=== PATIENT | male | born 1945 | race Caucasian/White ===

== ENCOUNTER 2024-03-19 20:20 | Inpatient (IN) | payer OTHER ==
[~2024-03-19] VITALS: Ht 160 cm; Wt 71.3 kg
[2024-03-19] MEDS ORDERED: AZITHROMYCIN 500MG/250ML 250 ML IV ONE (21:00)
[2024-03-19] MEDS ORDERED: CEFTRIAXONE 1GM/50ML 50 ML IV ONE (21:00)
[2024-03-19] MEDS: SODIUM CHLORIDE 0.9% 1000ML BAG (SEPSIS BOLUS) IV ONE (21:32)
[2024-03-19 21:56] LABS: LACTIC ACID 3.5 mmol/L (0.4-2.0)
[2024-03-20] LABS: HEMATOCRIT. 34.8 % (42.0-52.0); HEMOGLOBIN. 11.3 g/dL (14.0-18.0); MEAN CORPUSCULAR HEMOGLOBIN 28.4 pg (28.0-32.0); MEAN CORPUSCULAR HGB CONC 32.5 g/dL (31.0-37.0); MEAN CORPUSCULAR VOLUME 87.3 fL (80.0-94.0); MEAN PLATELET VOLUME 8.9 fl (7.4-10.4); PLATELET 162 x1000/uL (130-400); RED BLOOD CELL COUNT 3.99 mill/uL (4.7-6.1); RED CELL DISTRIBUTION WIDTH 13.8 % (11.6-14.6); WHITE BLOOD COUNT 9.7 x1000/uL (4.5-11.0)
[2024-03-20 00:03] LABS: DIFFERENTIAL COMMENT 1
[2024-03-20 00:06] LABS: CHLORIDE 103 mEq/L (98-107); POTASSIUM 3.5 mEq/L (3.5-5.1); SODIUM 137 mEq/L (136-145)
[2024-03-20 00:07] LABS: CALCIUM 7.9 mg/dL (8.7-10.4); CARBON DIOXIDE 21 mEq/L (21-32)
[2024-03-20 00:12] LABS: CREATININE 2.5 mg/dL (0.6-1.3); GLUCOSE 112 mg/dL (70-105); UREA NITROGEN BLOOD 36 mg/dL (9-23)
[2024-03-20 00:13] LABS: LACTATE DEHYDROGENASE 353 IU/L (120-246)
[2024-03-20 00:14] LABS: ALANINE AMINOTRANSFERASE 59 IU/L (10-49); ALBUMIN 3.4 g/dL (3.2-4.8); ASPARTATE AMINOTRANSFERASE 117 IU/L (<34); BILIRUBIN DIRECT 0.2 mg/dL (<=3.0); BILIRUBIN TOTAL 0.4 mg/dL (0.1-1.0); PROTEIN TOTAL 6.2 g/dL (6.0-8.3)
[2024-03-20 01:04] LABS: CREATINE KINASE 1390 IU/L (46-171)
[2024-03-20 01:06] LABS: TROPONIN I HIGH SENSITIVITY 213 ng/L (3.0-53)
[2024-03-20 01:10] LABS: D-DIMER 1.59 mg/L FEU (<0.50); INR 1.4; PARTIAL THROMBOPLASTIN TIME 30.8 sec (23.4-31.0); PROTHROMBIN TIME 15.7 sec (9.6-11.0)
[2024-03-20] MEDS: GUAIFENESIN 200MG/10ML SUGAR FREE UDC PO ONE (01:18)
[2024-03-20] MEDS: CEFTRIAXONE 1GM/50ML 50 ML IV NR (01:20)
[2024-03-20] MEDS: AZITHROMYCIN 500MG/250ML 250 ML IV NR (02:16)
[2024-03-20] MEDS: ACETAMINOPHEN 1000MG/100ML 100 ML IV ONE (03:57)
[2024-03-20] MEDS: ENOXAPARIN 80MG/0.8ML SYR SUBCUT NR (04:06)
[2024-03-20] MEDS ORDERED: IOHEXOL-350 100 ML BOTTLE ONE (04:07)
[2024-03-20 08:40] LABS: PLATELET ESTIMATE NORMAL
[2024-03-20 13:30] VITALS: BP 158/94; PULSE 130; RESP 30; TEMP 99
[2024-03-20 14:00] VITALS: BP 163/106; PULSE 136; RESP 35
[2024-03-20 16:00] VITALS: BP 129/75; PULSE 140; RESP 58; TEMP 102.5
[2024-03-20] MEDS ORDERED: ONDANSETRON HCL 4MG/2ML INJ IV PRN (16:30)
[2024-03-20] MEDS ORDERED: IPRATROPIUM/ALBUTEROL 0.5-3(2.5)MG/3ML NEB NEB PRN (16:30)
[2024-03-20] MEDS ORDERED: ACETAMINOPHEN 325MG TABLET PO PRN (16:30)
[2024-03-20] MEDS: ACETAMINOPHEN 325MG TABLET PO PRN (16:44)
[2024-03-20] MEDS: SODIUM CHLORIDE 0.9% 1,000 ML IV SCH (16:45)
[2024-03-20] MEDS: CEFTRIAXONE 1GM/50ML 50 ML IV SCH (17:19)
[2024-03-20] MEDS: ENOXAPARIN 30MG/0.3ML SYR SUBCUT SCH (17:20)
[2024-03-20] MEDS: PANTOPRAZOLE SODIUM 40 MG/VIAL IV SCH (17:40)
[2024-03-20 18:00] VITALS: BP 119/78; PULSE 124; RESP 36
[2024-03-20 20:00] VITALS: BP 110/74; PULSE 119; RESP 39; TEMP 97.3
[2024-03-20] MEDS: LACTOBACILLUS GG CAPSULE PO SCH (21:42)
[2024-03-20] MEDS: ENOXAPARIN 30MG/0.3ML SYR SUBCUT NR (21:42)
[2024-03-20 22:00] VITALS: BP 126/85; PULSE 120; RESP 34
[2024-03-20 23:09] LABS: CLARITY URINE CLOUDY (CLEAR); COLOR URINE YELLOW (YELLOW); GLUCOSE URINE NEGATIVE (NEGATIVE); KETONES URINE NEGATIVE (NEGATIVE); LEUKOCYTE ESTERASE URINE NEGATIVE (NEGATIVE); NITRITE URINE NEGATIVE (NEGATIVE); OCCULT BLOOD URINE 3+ (NEGATIVE); PH URINE 5.5 (4.5-8.0); PROTEIN URINE 2+ (NEGATIVE); SPECIFIC GRAVITY URINE 1.023 (1.005-1.030); UROBILINOGEN URINE 0.2 E.U./dL (0.2-1.0)
[2024-03-20 23:21] LABS: BACTERIA URINE 3+; RBC URINE TNTC /hpf (0-2); SQUAMOUS EPITHELIAL CELL URINE FEW /lpf (RARE/1+); WBC URINE 0-2 /hpf (0-2)
[2024-03-20 23:27] LABS: *AMPHETAMINES SCREEN URINE NEGATIVE (NEGATIVE); *BARBITURATES SCREEN URINE NEGATIVE (NEGATIVE); *COCAINE SCREEN URINE NEGATIVE (NEGATIVE); ECSTASY MDMA SCREEN URINE NEGATIVE (NEGATIVE); METHADONE URINE SCREEN NEGATIVE (NEGATIVE); OPIATES URINE SCREEN NEGATIVE (NEGATIVE); PHENCYCLIDINE URINE SCREEN NEGATIVE (NEGATIVE)
[2024-03-21] VITALS (20 sets, daily range): BP systolic 105–156; BP diastolic 70–108; PULSE 108–135; RESP 23–44; TEMP 98.4–100.3
[2024-03-21 00:37] LABS: CREATINE KINASE MB FRACTION 6.8 ng/mL (0.5-3.6)
[2024-03-21 01:08] LABS: BG BASE EXCESS -6.3 mmol/L (-2.0-2.0); BG CARBOXYHEMOGLOBIN 0.3 % (0.5-1.5); BG DEOXYHEMOGLOBIN 11.8 % (0.0-5.0); BG FRACTION INSPIRED OXYGEN 40; BG HCO3 ACT 16.3 mmol/L (22.0-26.0); BG METHEMOGLOBIN 0.3 % (0.0-1.5); BG OXYGEN SATURATION 88.1 % (92.0-98.5); BG OXYHEMOGLOBIN 87.6 % (94.0-97.0); BG PCO2 25.3 mmHg (35.0-45.0); BG PH 7.428 (7.350-7.450); BG PO2 54.3 mmHg (75.0-100.0); BG TOTAL HEMOGLOBIN 13.1 g/dL (12.0-18.0); BG VENT MODE NASAL CANNULA
[2024-03-21] MEDS: METHYLPREDNISOLONE SOD SUCC 40MG/ML (ACT-O-VIAL) IV SCH (02:39)
[2024-03-21 05:09] LABS: CREATINE KINASE MB FRACTION 4.8 ng/mL (0.5-3.6)
[2024-03-21 05:12] LABS: TRIGLYCERIDE 138 mg/dL (0-150)
[2024-03-21 05:13] LABS: LDL CHOLESTEROL 21 mg/dL (5-100)
[2024-03-21 05:14] LABS: CHOLESTEROL 80 mg/dL (<200); HDL CHOLESTEROL < 20 mg/dL (>55)
[2024-03-21 05:22] LABS: CREATINE KINASE 1300 IU/L (46-171)
[2024-03-21 06:31] LABS: TROPONIN I HIGH SENSITIVITY 454 ng/L (3.0-53)
[2024-03-21] MEDS: AZITHROMYCIN 250 MG TABLET PO SCH (08:19)
[2024-03-21] MEDS: FAMOTIDINE 20MG/2ML VIAL IV SCH (08:19)
[2024-03-21] MEDS: IPRATROPIUM/ALBUTEROL 0.5-3(2.5)MG/3ML NEB HHN SCH (08:45)
[2024-03-21 09:55] LABS: HEMATOCRIT. 35.9 % (42.0-52.0); HEMOGLOBIN. 11.6 g/dL (14.0-18.0); MEAN CORPUSCULAR HEMOGLOBIN 27.6 pg (28.0-32.0); MEAN CORPUSCULAR HGB CONC 32.4 g/dL (31.0-37.0); MEAN CORPUSCULAR VOLUME 85.1 fL (80.0-94.0); MEAN PLATELET VOLUME 9.3 fl (7.4-10.4); PLATELET 144 x1000/uL (130-400); RED BLOOD CELL COUNT 4.22 mill/uL (4.7-6.1); RED CELL DISTRIBUTION WIDTH 14.2 % (11.6-14.6); WHITE BLOOD COUNT 9.9 x1000/uL (4.5-11.0)
[2024-03-21] MEDS: ASPIRIN 81MG TABLET PO SCH (09:58)
[2024-03-21 10:14] LABS: DIFFERENTIAL COMMENT 1
[2024-03-21 10:15] LABS: POTASSIUM 3.7 mEq/L (3.5-5.1)
[2024-03-21 10:16] LABS: CALCIUM 7.9 mg/dL (8.7-10.4)
[2024-03-21 10:20] LABS: CREATINE KINASE MB FRACTION 3.1 ng/mL (0.5-3.6)
[2024-03-21] MEDS: METRONIDAZOLE 500MG TABLET PO SCH (17:11)
[2024-03-21 17:12] LABS: PLATELET ESTIMATE NORMAL
[2024-03-21] MEDS: ENOXAPARIN 60MG/0.6ML SYR SUBCUT SCH (20:34)
[2024-03-21 23:11] LABS: CREATININE URINE RANDOM 86.7 mg/dL
[2024-03-22] VITALS (15 sets, daily range): BP systolic 131–170; BP diastolic 76–96; PULSE 104–133; RESP 28–53; TEMP 97.1–99.6; O2SAT 92
[2024-03-22] MEDS: ACETYLCYSTEINE 200MG/ML 20% VIAL 4ML INH SCH (02:40)
[2024-03-22 05:16] LABS: POTASSIUM 3.2 mEq/L (3.5-5.1)
[2024-03-22 05:22] LABS: CREATINE KINASE MB FRACTION 2.1 ng/mL (0.5-3.6); CREATININE 2.9 mg/dL (0.6-1.3)
[2024-03-22 06:01] LABS: HEMATOCRIT. 32.5 % (42.0-52.0); HEMOGLOBIN. 10.6 g/dL (14.0-18.0); MEAN CORPUSCULAR HEMOGLOBIN 27.6 pg (28.0-32.0); MEAN CORPUSCULAR HGB CONC 32.7 g/dL (31.0-37.0); MEAN CORPUSCULAR VOLUME 84.5 fL (80.0-94.0); MEAN PLATELET VOLUME 9.5 fl (7.4-10.4); PLATELET 128 x1000/uL (130-400); RED BLOOD CELL COUNT 3.84 mill/uL (4.7-6.1); RED CELL DISTRIBUTION WIDTH 14.4 % (11.6-14.6); WHITE BLOOD COUNT 9.5 x1000/uL (4.5-11.0)
[2024-03-22 07:23] LABS: DIFFERENTIAL COMMENT 1
[2024-03-22] MEDS: SODIUM BICARBONATE 650 MG TABLET PO SCH (08:40)
[2024-03-22 12:08] LABS: PLATELET ESTIMATE SLIGHTLY DECREASED
[2024-03-22] MEDS ORDERED: CEFEPIME 2GM IN DEXT 5% 100ML IV SCH (15:45)
[2024-03-22] MEDS: GUAIFENESIN 200MG/10ML SUGAR FREE UDC PO PRN (16:01)
[2024-03-22] MEDS: CEFEPIME 2GM/100ML 100 ML IV SCH (17:58)
[2024-03-23] VITALS (16 sets, daily range): BP systolic 128–170; BP diastolic 82–103; PULSE 97–129; RESP 13–40; TEMP 97–97.7; O2SAT 94–96
[2024-03-23 05:28] LABS: POTASSIUM 3.4 mEq/L (3.5-5.1)
[2024-03-23 05:29] LABS: CALCIUM 8.1 mg/dL (8.7-10.4)
[2024-03-23 05:33] LABS: CREATINE KINASE MB FRACTION 3.6 ng/mL (0.5-3.6)
[2024-03-23 05:34] LABS: CREATININE 2.6 mg/dL (0.6-1.3)
[2024-03-23 06:06] LABS: HEMATOCRIT. 31.2 % (42.0-52.0); HEMOGLOBIN. 10.2 g/dL (14.0-18.0); MEAN CORPUSCULAR HGB CONC 32.7 g/dL (31.0-37.0); MEAN CORPUSCULAR VOLUME 85.8 fL (80.0-94.0); MEAN PLATELET VOLUME 9.5 fl (7.4-10.4); PLATELET 116 x1000/uL (130-400); RED BLOOD CELL COUNT 3.64 mill/uL (4.7-6.1); RED CELL DISTRIBUTION WIDTH 14.8 % (11.6-14.6); WHITE BLOOD COUNT 9.9 x1000/uL (4.5-11.0)
[2024-03-23 07:08] LABS: DIFFERENTIAL COMMENT 1
[2024-03-23 08:41] LABS: HEPATITIS B SURFACE ANTIGEN NEGATIVE (Negative)
[2024-03-23 09:01] LABS: HEPATITIS C AB NON REACTIVE (Neg) (Negative)
[2024-03-23 09:10] LABS: COMPLEMENT C3 126 mg/dL (82-167); COMPLEMENT C4 33 mg/dL (12-38)
[2024-03-23] MEDS: POTASSIUM CHLORIDE 20MEQ TABLET SR PO NR (09:45)
[2024-03-23 10:33] LABS: CREATINE KINASE 366 IU/L (46-171)
[2024-03-23 13:11] LABS: ANTI-NUCLEAR ANTIBODIES DIRECT Negative (Negative)
[2024-03-23] MEDS: METHYLPREDNISOLONE SOD SUCC 40MG/ML (ACT-O-VIAL) IV SCH (14:10)
[2024-03-23 16:41] LABS: PLATELET ESTIMATE SLIGHTLY DECREASED
[2024-03-23] MEDS: CLONIDINE 0.1MG TABLET PO PRN (19:00)
[2024-03-23] MEDS: ENOXAPARIN 80MG/0.8ML SYR SUBCUT SCH (21:42)
[2024-03-24] VITALS (15 sets, daily range): BP systolic 127–162; BP diastolic 76–100; PULSE 74–109; RESP 20–38; TEMP 97–97.8; O2SAT 98
[2024-03-24 06:48] LABS: HEMATOCRIT. 34.5 % (42.0-52.0); HEMOGLOBIN. 11.3 g/dL (14.0-18.0); MEAN CORPUSCULAR HEMOGLOBIN 27.8 pg (28.0-32.0); MEAN CORPUSCULAR HGB CONC 32.8 g/dL (31.0-37.0); MEAN CORPUSCULAR VOLUME 84.8 fL (80.0-94.0); MEAN PLATELET VOLUME 9.4 fl (7.4-10.4); PLATELET 139 x1000/uL (130-400); RED BLOOD CELL COUNT 4.07 mill/uL (4.7-6.1); WHITE BLOOD COUNT 10.2 x1000/uL (4.5-11.0)
[2024-03-24 07:13] LABS: CALCIUM 8.6 mg/dL (8.7-10.4); CHLORIDE 116 mEq/L (98-107)
[2024-03-24 07:14] LABS: CARBON DIOXIDE 14 mEq/L (21-32); SODIUM 146 mEq/L (136-145)
[2024-03-24 07:19] LABS: CREATININE 2.3 mg/dL (0.6-1.3); GLUCOSE 239 mg/dL (70-105)
[2024-03-24 07:20] LABS: CREATINE KINASE 414 IU/L (46-171); UREA NITROGEN BLOOD 61 mg/dL (9-23)
[2024-03-24 07:22] LABS: PHOSPHORUS 3.8 mg/dL (2.5-4.9)
[2024-03-24 07:27] LABS: DIFFERENTIAL COMMENT 1
[2024-03-24] MEDS: SODIUM BICARBONATE 100 MEQ in DEXTROSE 5% WATER 900 ML IV SCH (10:07)
[2024-03-24] MEDS: KCL 20MEQ/100ML PREMIX 100 ML IV SCH (10:07)
[2024-03-24 10:22] LABS: BG BASE EXCESS -6.2 mmol/L (-2.0-2.0); BG CARBOXYHEMOGLOBIN 0.3 % (0.5-1.5); BG DEOXYHEMOGLOBIN 9.3 % (0.0-5.0); BG FRACTION INSPIRED OXYGEN 44; BG HCO3 ACT 16.4 mmol/L (22.0-26.0); BG METHEMOGLOBIN 0.3 % (0.0-1.5); BG OXYGEN SATURATION 90.6 % (92.0-98.5); BG OXYHEMOGLOBIN 90.1 % (94.0-97.0); BG PCO2 24.5 mmHg (35.0-45.0); BG PH 7.444 (7.350-7.450); BG PO2 59.4 mmHg (75.0-100.0); BG SAMPLE SITE LEFT RADIAL; BG VENT MODE NASAL CANNULA
[2024-03-24 13:11] LABS: ATYPICAL P-ANCA <1:20 titer (Neg:<1:20); CYTOPLASMIC C-ANCA <1:20 titer (Neg:<1:20); PERINUCLEAR P-ANCA <1:20 titer (Neg:<1:20)
[2024-03-24 14:35] LABS: ANISOCYTOSIS 1+; PLATELET ESTIMATE NORMAL
[2024-03-24] MEDS: CARVEDILOL 6.25 MG TABLET PO SCH (16:07)
[2024-03-24 17:07] LABS: ANTI-MYELOPEROXIDASE AB < 0.2 units (0.0-0.9); ANTI-PROTEINASE 3 ABS < 0.2 units (0.0-0.9)
[2024-03-25] VITALS (15 sets, daily range): BP systolic 115–157; BP diastolic 80–97; PULSE 66–86; RESP 16–37; TEMP 97.1–97.8; O2SAT 96–98
[2024-03-25 12:31] LABS: HEMATOCRIT. 35.2 % (42.0-52.0); HEMOGLOBIN. 11.4 g/dL (14.0-18.0); MEAN CORPUSCULAR HEMOGLOBIN 27.3 pg (28.0-32.0); MEAN CORPUSCULAR HGB CONC 32.4 g/dL (31.0-37.0); MEAN CORPUSCULAR VOLUME 84.1 fL (80.0-94.0); PLATELET 137 x1000/uL (130-400); RED BLOOD CELL COUNT 4.18 mill/uL (4.7-6.1); WHITE BLOOD COUNT 6.7 x1000/uL (4.5-11.0)
[2024-03-25 12:32] LABS: DIFFERENTIAL COMMENT 1
[2024-03-25 12:49] LABS: CALCIUM 7.9 mg/dL (8.7-10.4); CARBON DIOXIDE 21 mEq/L (21-32); CHLORIDE 109 mEq/L (98-107); POTASSIUM 3.9 mEq/L (3.5-5.1); SODIUM 140 mEq/L (136-145)
[2024-03-25 12:52] LABS: GLUCOSE 360 mg/dL (70-105)
[2024-03-25 12:55] LABS: PHOSPHORUS 3.3 mg/dL (2.5-4.9); UREA NITROGEN BLOOD 59 mg/dL (9-23)
[2024-03-25] MEDS: METHYLPREDNISOLONE SOD SUCC 40MG/ML (ACT-O-VIAL) IV SCH (13:24)
[2024-03-25 16:21] LABS: ANISOCYTOSIS 1+; PLATELET ESTIMATE NORMAL
[2024-03-26] VITALS (13 sets, daily range): BP systolic 126–171; BP diastolic 74–114; PULSE 70–95; RESP 17–34; TEMP 97–98.7
[2024-03-26 05:45] LABS: POTASSIUM 3.8 mEq/L (3.5-5.1)
[2024-03-26 05:46] LABS: CALCIUM 7.6 mg/dL (8.7-10.4)
[2024-03-26 05:47] LABS: HEMATOCRIT. 32.5 % (42.0-52.0); HEMOGLOBIN. 10.8 g/dL (14.0-18.0); MEAN CORPUSCULAR HEMOGLOBIN 28.2 pg (28.0-32.0); MEAN CORPUSCULAR HGB CONC 33.3 g/dL (31.0-37.0); MEAN CORPUSCULAR VOLUME 84.6 fL (80.0-94.0); MEAN PLATELET VOLUME 9.5 fl (7.4-10.4); PLATELET 126 x1000/uL (130-400); RED BLOOD CELL COUNT 3.84 mill/uL (4.7-6.1); RED CELL DISTRIBUTION WIDTH 14.9 % (11.6-14.6); WHITE BLOOD COUNT 5.7 x1000/uL (4.5-11.0)
[2024-03-26 05:51] LABS: CREATININE 1.9 mg/dL (0.6-1.3)
[2024-03-26 06:54] LABS: DIFFERENTIAL COMMENT 1
[2024-03-26 10:59] LABS: PLATELET ESTIMATE SLIGHTLY DECREASED
[2024-03-26] MEDS: AMLODIPINE 5MG TABLET PO SCH (11:36)
[2024-03-26] MEDS: PREDNISONE 20MG TABLET PO SCH (17:59)
[2024-03-27] VITALS (13 sets, daily range): BP systolic 106–160; BP diastolic 70–89; PULSE 68–91; RESP 20–32; TEMP 97–98.2
[2024-03-27 05:39] LABS: POTASSIUM 3.8 mEq/L (3.5-5.1)
[2024-03-27 05:40] LABS: CALCIUM 7.5 mg/dL (8.7-10.4)
[2024-03-27 05:44] LABS: CREATININE 1.9 mg/dL (0.6-1.3)
[2024-03-27 06:38] LABS: EOSINOPHILS % 0.1 % (0.0-5.0); HEMATOCRIT. 32.9 % (42.0-52.0); HEMOGLOBIN. 10.9 g/dL (14.0-18.0); LYMPHOCYTES % 7.2 % (20.0-50.0); MEAN CORPUSCULAR HEMOGLOBIN 27.7 pg (28.0-32.0); MEAN CORPUSCULAR HGB CONC 33.1 g/dL (31.0-37.0); MEAN CORPUSCULAR VOLUME 83.9 fL (80.0-94.0); MEAN PLATELET VOLUME 9.7 fl (7.4-10.4); MONOCYTES % 3.5 % (2.0-8.0); NEUTROPHILS % 89.2 % (40.0-76.0); PLATELET 155 x1000/uL (130-400); RED BLOOD CELL COUNT 3.92 mill/uL (4.7-6.1); RED CELL DISTRIBUTION WIDTH 14.6 % (11.6-14.6); WHITE BLOOD COUNT 7.1 x1000/uL (4.5-11.0)
[2024-03-28] VITALS (14 sets, daily range): BP systolic 96–144; BP diastolic 68–94; PULSE 71–101; RESP 18–30; TEMP 96.9–97.8; O2SAT 97
[2024-03-28] MEDS: BUDESONIDE 0.5MG/2ML NEB HHN SCH (08:44)
[2024-03-28] MEDS: ALBUTEROL (0.083%) 2.5MG/3ML NEB HHN SCH (08:44)
[2024-03-28] MEDS: AMLODIPINE 5MG TABLET PO SCH (08:47)
[2024-03-28] MEDS ORDERED: FLUTICASONE/VILANTEROL 200-25 BLST.W.DEV ORI SCH (09:00)
[2024-03-28 11:59] LABS: BASOPHILS % 0.3 % (0.0-2.0); EOSINOPHILS % 0.6 % (0.0-5.0); HEMOGLOBIN. 11.1 g/dL (14.0-18.0); LYMPHOCYTES % 11.3 % (20.0-50.0); MEAN CORPUSCULAR HEMOGLOBIN 27.7 pg (28.0-32.0); MEAN CORPUSCULAR HGB CONC 32.5 g/dL (31.0-37.0); MEAN CORPUSCULAR VOLUME 85.1 fL (80.0-94.0); MEAN PLATELET VOLUME 9.5 fl (7.4-10.4); MONOCYTES % 2.7 % (2.0-8.0); NEUTROPHILS % 85.1 % (40.0-76.0); PLATELET 170 x1000/uL (130-400); RED CELL DISTRIBUTION WIDTH 14.5 % (11.6-14.6); WHITE BLOOD COUNT 8.2 x1000/uL (4.5-11.0)
[2024-03-28 12:21] LABS: POTASSIUM 3.7 mEq/L (3.5-5.1)
[2024-03-28 12:22] LABS: CALCIUM 7.7 mg/dL (8.7-10.4)
[2024-03-28 12:27] LABS: CREATININE 1.7 mg/dL (0.6-1.3)
[2024-03-28 12:42] LABS: BG BASE EXCESS 7.8 mmol/L (-2.0-2.0); BG CARBOXYHEMOGLOBIN 0.1 % (0.5-1.5); BG DEOXYHEMOGLOBIN 12.2 % (0.0-5.0); BG FRACTION INSPIRED OXYGEN 21; BG HCO3 ACT 30.1 mmol/L (22.0-26.0); BG METHEMOGLOBIN 0.3 % (0.0-1.5); BG OXYGEN SATURATION 87.8 % (92.0-98.5); BG OXYHEMOGLOBIN 87.4 % (94.0-97.0); BG PCO2 34.2 mmHg (35.0-45.0); BG PH 7.563 (7.350-7.450); BG PO2 50.4 mmHg (75.0-100.0); BG SAMPLE SITE RIGHT RADIAL; BG VENT MODE ROOM AIR
[2024-03-29] VITALS (39 sets, daily range): BP systolic 82–123; BP diastolic 50–81; PULSE 71–103; RESP 9–34; TEMP 96.8–98.6; O2SAT 94–99
[2024-03-29 05:17] LABS: POTASSIUM 3.8 mEq/L (3.5-5.1)
[2024-03-29 05:18] LABS: CALCIUM 7.5 mg/dL (8.7-10.4)
[2024-03-29 05:23] LABS: CREATININE 1.5 mg/dL (0.6-1.3)
[2024-03-29] MEDS: AMLODIPINE 10MG TABLET PO SCH (08:54)
[2024-03-29 12:41] LABS: HEMATOCRIT. 24.6 % (42.0-52.0); MEAN CORPUSCULAR HEMOGLOBIN 27.9 pg (28.0-32.0); MEAN CORPUSCULAR HGB CONC 32.8 g/dL (31.0-37.0); MEAN CORPUSCULAR VOLUME 84.9 fL (80.0-94.0); MEAN PLATELET VOLUME 9.7 fl (7.4-10.4); PLATELET 179 x1000/uL (130-400); RED CELL DISTRIBUTION WIDTH 14.3 % (11.6-14.6); WHITE BLOOD COUNT 10.5 x1000/uL (4.5-11.0)
[2024-03-29 12:45] LABS: DIFFERENTIAL COMMENT 1
[2024-03-29 12:46] LABS: HEMOGLOBIN. 8.1 g/dL (14.0-18.0)
[2024-03-29 15:09] LABS: PLATELET ESTIMATE NORMAL
[2024-03-29] MEDS: SODIUM CHLORIDE 0.9% 1,000 ML IV ONE (18:30)
[2024-03-30] VITALS (108 sets, daily range): BP systolic 32–129; BP diastolic 13–95; PULSE 65–133; RESP 0–40; TEMP 97–97.6; O2SAT 96
[2024-03-30] MEDS: NOREPINEPHRINE 8MG/250ML PMX 250 ML IV PRN (03:46)
[2024-03-30 03:58] LABS: BG CARBOXYHEMOGLOBIN 0.3 % (0.5-1.5); BG DEOXYHEMOGLOBIN 3.4 % (0.0-5.0); BG FRACTION INSPIRED OXYGEN 40; BG HCO3 ACT 9.5 mmol/L (22.0-26.0); BG METHEMOGLOBIN 0.3 % (0.0-1.5); BG OXYGEN SATURATION 96.6 % (92.0-98.5); BG PCO2 14.3 mmHg (35.0-45.0); BG PH 7.439 (7.350-7.450); BG PO2 95.6 mmHg (75.0-100.0); BG SAMPLE SITE LEFT RADIAL; BG TOTAL HEMOGLOBIN 7.6 g/dL (12.0-18.0); BG VENT MODE NASAL CANNULA
[2024-03-30] MEDS ORDERED: PROPOFOL 10MG/ML 100ML 100 ML IV PRN (04:45)
[2024-03-30] MEDS ORDERED: FENTANYL CITRATE/PF 2,500 MCG in SODIUM CHLORIDE 0.9% 200 ML IV PRN (04:45)
[2024-03-30] MEDS: VASOPRESSIN 20 UNIT in SODIUM CHLORIDE 0.9% 99 ML IV PRN (05:51)
[2024-03-30] MEDS: PHENYLEPHRINE 100 MG in DEXT 5% WATER 240 ML IV PRN (05:52)
[2024-03-30 06:07] LABS: BASOPHILS % 0.4 % (0.0-2.0); DIFFERENTIAL COMMENT 0; EOSINOPHILS % 0.2 % (0.0-5.0); LYMPHOCYTES % 13.7 % (20.0-50.0); MEAN CORPUSCULAR HEMOGLOBIN 27.7 pg (28.0-32.0); MEAN CORPUSCULAR HGB CONC 28.8 g/dL (31.0-37.0); MEAN CORPUSCULAR VOLUME 96.1 fL (80.0-94.0); MEAN PLATELET VOLUME 10.2 fl (7.4-10.4); MONOCYTES % 2.4 % (2.0-8.0); NEUTROPHILS % 83.3 % (40.0-76.0); PLATELET 184 x1000/uL (130-400); RED BLOOD CELL COUNT 1.91 mill/uL (4.7-6.1); RED CELL DISTRIBUTION WIDTH 16.6 % (11.6-14.6); WHITE BLOOD COUNT 22.2 x1000/uL (4.5-11.0)
[2024-03-30 06:11] LABS: POTASSIUM 5.4 mEq/L (3.5-5.1)
[2024-03-30 06:13] LABS: CALCIUM 7.8 mg/dL (8.7-10.4)
[2024-03-30 06:22] LABS: HEMATOCRIT. 18.3 % (42.0-52.0); HEMOGLOBIN. 5.3 g/dL (14.0-18.0)
[2024-03-30 06:24] LABS: CREATININE 2.4 mg/dL (0.6-1.3)
[2024-03-30] MEDS: AMLODIPINE 5MG TABLET PO SCH (08:20)
[2024-03-30] MEDS: NOREPINEPHRINE 32 MG in DEXT 5% WATER 218 ML IV PRN (08:54)
[2024-03-30] MEDS ORDERED: SODIUM BICARBONATE 8.4% 1 MEQ/ML 50ML SYR IV STA (09:03)
[2024-03-30 09:04] LABS: BG BASE EXCESS -15.1 mmol/L (-2.0-2.0); BG CARBOXYHEMOGLOBIN 0.3 % (0.5-1.5); BG DEOXYHEMOGLOBIN 10.4 % (0.0-5.0); BG FRACTION INSPIRED OXYGEN 100; BG HCO3 ACT 12.3 mmol/L (22.0-26.0); BG METHEMOGLOBIN 0.2 % (0.0-1.5); BG OXYGEN SATURATION 89.5 % (92.0-98.5); BG OXYHEMOGLOBIN 89.1 % (94.0-97.0); BG PCO2 36.2 mmHg (35.0-45.0); BG PO2 84.4 mmHg (75.0-100.0); BG SAMPLE SITE LEFT RADIAL; BG TOTAL RESPIRATORY RATE 20 b/min; BG VENT MODE VENT - AC
[2024-03-30] MEDS ORDERED: SODIUM BICARBONATE 150 MEQ in DEXTROSE 5% WATER 850 ML IV SCH (09:15)
[2024-03-30] MEDS ORDERED: SODIUM POLYSTYRENE SULFONATE 15 G/60 ML BOT PO ONE (09:15)
[2024-03-30] MEDS: DOPAMINE 400MG/250ML PREMIX 250 ML IV PRN (09:24)
[2024-03-30] MEDS: SODIUM BICARBONATE 8.4% 1 MEQ/ML 50ML SYR IV NR ×2 (09:24→18:41)
[2024-03-30] MEDS: SODIUM ZIRCONIUM CYCLOSILICATE 10GM/PACKET PO NR (09:59)
[2024-03-30] MEDS: SODIUM BICARBONATE 150 MEQ in DEXTROSE 5% WATER 850 ML IV SCH (10:41)
[2024-03-30] MEDS ORDERED: DEXTROSE 50% WATER 50ML SYRINGE IV ONE (11:36)
[2024-03-30] MEDS: DEXTROSE 50% WATER 50ML SYRINGE IV PRN (11:39)
[2024-03-30] MEDS: PANTOPRAZOLE SODIUM 40 MG/VIAL IV SCH (12:24)
[2024-03-30] MEDS: VANCOMYCIN 1.25GM PMX (XELLIA) 250 ML IV SCH (12:24)
[2024-03-30] MEDS: BLOOD SUGAR DIAGNOSTIC STRIP TEST SCH (12:24)
[2024-03-30 12:45] LABS: CLARITY URINE CLOUDY (CLEAR); COLOR URINE YELLOW (YELLOW); GLUCOSE URINE 2+ (NEGATIVE); KETONES URINE NEGATIVE (NEGATIVE); LEUKOCYTE ESTERASE URINE NEGATIVE (NEGATIVE); NITRITE URINE NEGATIVE (NEGATIVE); OCCULT BLOOD URINE 3+ (NEGATIVE); PH URINE 5.5 (4.5-8.0); PROTEIN URINE 2+ (NEGATIVE); SPECIFIC GRAVITY URINE 1.016 (1.005-1.030); UROBILINOGEN URINE 0.2 E.U./dL (0.2-1.0)
[2024-03-30 13:58] LABS: BACTERIA URINE 4+
[2024-03-30 13:59] LABS: COARSE GRANULAR CASTS URINE 0-5 /lpf; FINE GRANULAR CASTS URINE 0-5 /lpf; HYALINE CASTS URINE 0-5 /lpf; SQUAMOUS EPITHELIAL CELL URINE FEW /lpf (RARE/1+)
[2024-03-30] MEDS: OCTREOTIDE 1,000 MCG in SODIUM CHLORIDE 0.9% 98 ML IV SCH (14:00)
[2024-03-30 17:16] LABS: HEMATOCRIT 32.9 % (42.0-52.0); HEMOGLOBIN 9.5 g/dL (14.0-18.0)
[2024-03-30] MEDS: EPINEPHRINE 10 MG in SODIUM CHLORIDE 0.9% 240 ML IV PRN (17:54)
[2024-03-30] MEDS ORDERED: ETOMIDATE 2MG/ML 10ML VIAL IV ONE (19:00)
[2024-03-30] MEDS: MEROPENEM 1G/100ML 100 ML IV SCH (21:08)
[2024-03-31] VITALS (36 sets, daily range): BP systolic 32–109; BP diastolic 10–63; PULSE 0–119; RESP 20; TEMP 95.3–97
[2024-03-31 05:42] LABS: FERRITIN 1232 ng/mL (22-322)
[2024-03-31 05:57] LABS: FOLIC ACID (FOLATE) SERUM > 20.00 ng/mL (>5.38)
[2024-03-31 08:12] LABS: VITAMIN B12 SERUM > 2000 pg/mL (211-911)
== END 2024-03-31 05:50 | DRG 871 ==
LOC: ER 20:20 → 5EST 03-20 02:19 → EDBEDREQSVC 03-20 03:13 → EDBEDREQTM 03-20 03:13 → CVICU 03-30 03:26
PROVIDERS: ADMIT Internal Medicine; ATTEND Internal Medicine
PROC: 5A09357 Assistance with Respiratory Ventilation, Less than 24 Consecutive Hours, Continuous Positive Airway Pressure (ICD-10-PCS; 2024-03-21)
PROC: 5A09357 Assistance with Respiratory Ventilation, Less than 24 Consecutive Hours, Continuous Positive Airway Pressure (ICD-10-PCS; 2024-03-22)
PROC: 5A09357 Assistance with Respiratory Ventilation, Less than 24 Consecutive Hours, Continuous Positive Airway Pressure (ICD-10-PCS; 2024-03-23)
PROC: 5A12012 Performance of Cardiac Output, Single, Manual (ICD-10-PCS; principal; 2024-03-30)
PROC: 5A1945Z Respiratory Ventilation, 24-96 Consecutive Hours (ICD-10-PCS; 2024-03-30)
PROC: 0BH17EZ Insertion of Endotracheal Airway into Trachea, Via Natural or Artificial Opening (ICD-10-PCS; 2024-03-30)
PROC: 30233N1 Transfusion of Nonautologous Red Blood Cells into Peripheral Vein, Percutaneous Approach (ICD-10-PCS; 2024-03-30)
DX: A41.9 Sepsis, unspecified organism (principal); I21.4 Non-ST elevation (NSTEMI) myocardial infarction; J96.01 Acute respiratory failure with hypoxia; J69.0 Pneumonitis due to inhalation of food and vomit; J18.9 Pneumonia, unspecified organism; E87.20 Acidosis, unspecified; M62.82 Rhabdomyolysis; N13.30 Unspecified hydronephrosis; N17.9 Acute kidney failure, unspecified; Z66 Do not resuscitate; I46.9 Cardiac arrest, cause unspecified; R65.20 Severe sepsis without septic shock; N18.9 Chronic kidney disease, unspecified; R82.81 Pyuria; R31.29 Other microscopic hematuria; D53.9 Nutritional anemia, unspecified; Z85.038 Personal history of other malignant neoplasm of large intestine; Z86.718 Personal history of other venous thrombosis and embolism; Z86.74 Personal history of sudden cardiac arrest; Z88.0 Allergy status to penicillin; Z79.899 Other long term (current) drug therapy
CPT/HCPCS: 31500; 36415; 36600; 71045; 71275; 74018; 76770; 80048; 80061; 80076; 80305; 81003; 82375; 82550; 82553; 82570; 82607; 82728; 82746; 82805; 82962; 83036; 83520; 83605; 83615; 83735; 83880; 84100; 84145; 84156; 84484; 85014; 85018; 85025; 85379; 86038; 86160; 86256; 86705; 86850; 86900; 86920; 87015; 87045; 87070; 87340; 87426; 87427; 87449; 87493; 87804; 93005; 93306; 93970; 94003; 94640; 94660; 97116; 97162; 97530; 99291; A6261; C9113; J0456; J0692; J0696; J1265; J1650; J2185; J2354; J2370; J2470; J2704; J2920; J3370; J3480; J3490; J7030; J7050; J7060; J7070; J7512; J7608; J7626; P9016; Q9967; J0131